=== PATIENT | male | born 1960 | race Caucasian/White ===

== ENCOUNTER → 2019-02-02 | Outpatient (CLI) | payer OTHER ==
--- NOTE | 2019-02-02 15:38 | XR ---
Cervical spine HISTORY: Neck pain 5 views of the cervical spine and 6 images Atherosclerotic calcifications are seen in the distribution of the carotid arteries. There is multile almita spondylosis. Multilevel foraminal encroachment is present at C3-4, C4-5 and C5-6 and C6-7 bilater ally. There is reversal the normal cervical lordosis. Anterolisthesis grade 1 C2-3, retrolisthesis gr nara 1 C4-5. Loss of intervertebral disc height present C3-4, C4-5, C5-6 and C6-7. Cervical vertebral bodies show preserved height. Suspect a hearing aid is present. Multilevel facet arthropathy. IMPRESSION: Degenerative disc disease, facet arthropathy, foraminal encroachment consider cervical sp ine MRI.
== END ==
LOC: RADXRMAIN 10:09
PROVIDERS: ATTEND Family Medicine
DX: M50.31 Other cervical disc degeneration, high cervical region (principal); M46.92 Unspecified inflammatory spondylopathy, cervical region
CPT/HCPCS: 72050

== ENCOUNTER → 2021-05-21 | Outpatient (CLI) | payer MEDICARE ==
[~2021-05-21] MED LIST: REGADENOSON 0.4 MG/5 ML SYRINGE IV PRN
--- NOTE | 2021-05-21 12:06 | NM ---
EXAMINATION TYPE: NM stress lexiscan cardiolite DATE OF EXAM: 05/21/2021 COMPARISON: NONE HISTORY: Abnormal EKG, chest pain TECHNIQUE: After the intravenous administration of 9.9 mCi Tc 99m Sestamibi - Cardiolite resting SPE CT images acquired 45 minutes post injection. The patient received 0.4mg Lexiscan, 25.3 mCi Tc 99m Sestamibi - Stress images obtained [address] injection FINDINGS: Review of stress and rest SPECT images demonstrates decreased uptake along the inferior wall left shar tricle on stress and rest images. Gated analysis shows normal wall motion with an estimated left hsar tricular ejection fraction of 50 %. IMPRESSION: No scintigraphic evidence for reversible ischemia. There is decreased uptake along the inferior wall the left ventricle on stress and rest images, correlate for history of right cardial infarction
--- NOTE | 2021-05-21 13:38 | ECHOS ---
STRESS ECHOCARDIOGRAM LEXISCAN STRESS TEST: AGE: 61 SEX: M HT: 5'10" WT: 245 lbs. PROTOCOL: Lexiscan STAGE: N/A DURATION OF EXERCISE: N/A HEART RATE REST: 65 BLOOD PRESSURE REST: 115/77 MAXIMUM HEART RATE ACHIEVED: 70 MAXIMUM BLOOD PRESSURE: 125/81 85% MPHR: 136 100% MPHR: 160 METS: N/A INDICATIONS: Abnormal EKG RESULTS: Baseline EKG revealed normal sinus rhythm without significant ST changes. There was poor R-wave progression over precordial leads. With Lexiscan administration, heart rate changed from 60 to 70 beats per minute. Blood pressure changed from 115/70 to 123/79. EKG remained unremarkable. Patient did not have any significant symptoms. By EKG criteria, this is an unremarkable Lexiscan stress test. The nuclear scan results which are more pertinent will be reported by the radiologist. SUMAN / GRACEN: [id number] /
== END | disposition home or self-care (01) ==
LOC: RADNMMAIN 07:57
PROVIDERS: ATTEND Family Medicine
DX: R07.89 Other chest pain (principal); R01.1 Cardiac murmur, unspecified
CPT/HCPCS: 93017; 78452; A9500; J2785

== ENCOUNTER → 2021-06-18 | Outpatient (CLI) | payer MEDICARE ==
--- NOTE | 2021-06-18 13:01 | ECHOF ---
Referral Reason:R07.89 Other chest pain MEASUREMENTS -------- HEIGHT: 177.8 cm WEIGHT: 111.6 kg BP: RVIDd: 3.9 cm (< 3.3) IVSd: 1.4 cm (0.6 - 1.1) LVIDd: 4.4 cm (3.9 - 5.3) LVPWd: 1.5 cm (0.6 - 1.1) IVSs: 2.0 cm LVIDs: 3.0 cm LVPWs: 2.0 cm LAESV Index (A-L): 16.34 ml/m Ao Diam: 3.2 cm (2.0 - 3.7) AV Cusp: 1.8 cm (1.5 - 2.6) LA Diam: 4.4 cm (2.7 - 3.8) MV EXCURSION: 24.216 mm (> 18.000) MV EF SLOPE: 114 mm/s (70 - 150) EPSS: 1.4 cm MV E Zenon: 0.56 m/s MV DecT: 317 ms MV A Zenon: 0.84 m/s MV E/A Ratio: 0.66 RAP: 5.00 mmHg RVSP: 27.69 mmHg FINDINGS -------- Sinus rhythm. This was a technically adequate study. The left ventricular size is normal. There is moderate concentric left ventricular hypertrophy. O verall left ventricular systolic function is normal with, an EF between 55 - 60 %. The diastolic fi lling pattern is normal for the age of the patient 7.60. The right ventricle is mildly enlarged. Normal LA size by volume 22+/-6 ml/m2. The right atrium was not well visualized. Interatrial and interventricular septum intact. There is mild aortic valve sclerosis. The mitral valve is normal. There is trace to mild mitral regurgitation. The tricuspid valve appears structurally normal. Mild tricuspid regurgitation present. Right vent ricular systolic pressure is normal at < 35 mmHg. The right ventricular systolic pressure, as measu red by Doppler, is 27.69mmHg. There is no pulmonic regurgitation present. The aortic root size is normal. IVC Not well visulized. There is no pericardial effusion. CONCLUSIONS -------- 1. There is moderate concentric left ventricular hypertrophy. 2. Overall left ventricular systolic function is normal with, an EF between 55 - 60 %. 3. The diastolic filling pattern is normal for the age of the patient 7.60 4. The right ventricle is mildly enlarged. 5. Normal LA size by volume 22+/-6 ml/m2. 6. There is mild aortic valve sclerosis. 7. There is trace to mild mitral regurgitation. 8. Mild tricuspid regurgitation present. 9. There is no pericardial effusion. BUILDING SUPERINTENDENT: Jacquie Dumas RDCS
== END | disposition home or self-care (01) ==
LOC: RADECHMAIN 11:58
PROVIDERS: ATTEND Family Medicine
DX: I08.1 Rheumatic disorders of both mitral and tricuspid valves (principal)
CPT/HCPCS: 93306

== ENCOUNTER → 2024-09-15 | Outpatient (CLI) | payer MEDICARE ==
--- NOTE | 2024-09-16 14:04 | CT ---
EXAMINATION TYPE: CT chest wo con DATE OF EXAM: 09/15/2024 COMPARISON: 01/23/2015 HISTORY: Solitary pulmonary nodule CT DLP: 498.9 mGycm, Automated exposure control for dose reduction was used. CONTRAST: Performed injected with 0 mL of Isovue 300. TECHNIQUE: Axial images were obtained at 5 mm thick sections. Reconstructed images are reviewed on [employer] computer in the coronal plane. FINDINGS: Portion of the thyroid visualized is normal. There is a faint 0.6 cm nodule in the periphery of the anterior lateral right midlung. Series 4 image 33. Mild emphysematous changes are present. No enlarged mediastinal or hilar adenopathy is evident. The ascending aorta diameter at the level o f the main pulmonary artery is 3.3 cm. The main pulmonary artery diameter at the bifurcation is 2.5 cm. Coronary artery calcification is present. Limited CT sections are obtained through the upper abdomen. Abdomen is essentially unremarkable. IMPRESSION: 1. Small nodule anterolateral right lung appears to be new from comparison. Short-term follow-up in 3 months is recommended. [facility], , 09/16/2024 2:02 PM
== END | disposition home or self-care (01) ==
LOC: RADCTMAIN 15:10
PROVIDERS: ATTEND Internal Medicine Pulmonary Disease
DX: J44.9 Chronic obstructive pulmonary disease, unspecified (principal); J45.50 Severe persistent asthma, uncomplicated; E11.9 Type 2 diabetes mellitus without complications; Z77.090 Contact with and (suspected) exposure to asbestos
CPT/HCPCS: 71250